=== PATIENT | male | born 1965 | race Native Hawaiian/Other Pacific Islander ===

== ENCOUNTER 2017-11-04 09:56 | Outpatient (CLI) | payer BC ==
[~2017-11-04 09:56] MED LIST: BENICAR20 MG PO; CARV6.25 PO; FURO40TA93 PO; GLIM2TAB PO; KLOR-CON M2020 MEQ PO; SPIRONOLACT25 MG PO; WARF10TA5 PO; WARF5TAB6 PO
== END 2017-11-04 19:47 | disposition home or self-care (01) ==
LOC: RAD 09:56
DX: M54.17 Radiculopathy, lumbosacral region (principal)

== ENCOUNTER → 2017-11-25 08:40 | Outpatient (CLI) | payer BC | END | disposition home or self-care (01) | LOC: AMB 08:40 | DX: R51 Headache (principal) ==

== ENCOUNTER 2018-03-17 12:35 | Outpatient (CLI) | payer BC | END 2018-03-17 23:15 | disposition home or self-care (01) | LOC: NM 12:35 | DX: R10.11 Right upper quadrant pain (principal) | CPT/HCPCS: A9537 ==

== ENCOUNTER 2019-03-16 04:43 | Outpatient (CLI) | payer BC | END 2019-03-16 04:55 | disposition short-term general hospital (02) | LOC: AMB 04:43 | DX: R06.02 Shortness of breath (principal) | CPT/HCPCS: A0425; A0427 ==

== ENCOUNTER 2019-03-16 05:00 | Emergency (ER) | payer BC ==
[~2019-03-16] VITALS: Ht 177.8 cm; Wt 83.9 kg
[2019-03-16 05:00] VITALS: TEMP 97.2
[2019-03-16 05:28] LABS: PLATELET COUNT 280 K/uL (142-355)
[2019-03-16 05:39] LABS: POTASSIUM 4.3 mmol/L (3.6-5.2); SODIUM 137 mmol/L (136-145)
[2019-03-16 07:18] VITALS: BP 99/65
== END 2019-03-16 07:18 | disposition home or self-care (01) ==
LOC: ED 05:00
PROVIDERS: Internal Medicine
DX: I50.9 Heart failure, unspecified (principal); R06.02 Shortness of breath
CPT/HCPCS: 80053; 82550; 83880; 84484; 85027; 85379; 93005; 94664; 96374; 99284; J1940

== ENCOUNTER 2019-06-11 11:16 | Emergency (ER) | payer BC ==
[~2019-06-11] VITALS: Ht 177.8 cm; Wt 83.9 kg
[2019-06-11] MEDS ORDERED: FORTAMET1000 MG PO (11:36)
[2019-06-11] MEDS ORDERED: LIPITOR40 MG PO (11:37)
[2019-06-11] MEDS ORDERED: CLOP75TA2 PO (11:37)
[2019-06-11] MEDS ORDERED: GLIM4TAB PO (11:37)
[2019-06-11] MEDS ORDERED: BUMETANIDE1 MG PO (11:37)
[2019-06-11] MEDS ORDERED: CARV3.12 PO (11:38)
[2019-06-11] MEDS ORDERED: PANTPAK PO (11:38)
[2019-06-11] MEDS ORDERED: CORLANOR5 MG PO (11:39)
[2019-06-11] MEDS ORDERED: BREO ELLIPTA 201 INH INH (11:39)
[2019-06-11 12:17] LABS: PLATELET COUNT 284 K/uL (142-355)
[2019-06-11 12:22] LABS: POTASSIUM 3.3 mmol/L (3.6-5.2); SODIUM 138 mmol/L (136-145)
[2019-06-11 12:29] LABS: PARTIAL THROMBOPLASTIN TIME 38.6 SECONDS (24.5-33.6)
[2019-06-11 14:30] VITALS: TEMP 98.3
[2019-06-11 15:30] VITALS: BP 111/75
== END 2019-06-11 15:30 | disposition short-term general hospital (02) ==
LOC: ED 11:16
PROVIDERS: Family Medicine
DX: R07.89 Other chest pain (principal); R42 Dizziness and giddiness; R55 Syncope and collapse
CPT/HCPCS: 36415; 80053; 81000; 82550; 83880; 84484; 85027; 85610; 85730; 93005; 99284

== ENCOUNTER 2020-06-01 10:20 | Emergency (ER) | payer BC ==
[~2020-06-01 10:20] MED LIST changes: +BREO ELLIPTA 201 INH INH; +BUMETANIDE1 MG PO; +CARV3.12 PO; +CLOP75TA2 PO; +CORLANOR5 MG PO; +FORTAMET1000 MG PO; +GLIM4TAB PO; +LIPITOR40 MG PO; +PANTPAK PO
[2020-06-01 19:27] LABS: POTASSIUM 3.5 mmol/L (3.6-5.2); SODIUM 134 mmol/L (136-145)
== END 2020-06-01 12:20 | disposition home or self-care (01) ==
LOC: ED 10:20
PROVIDERS: Hospitalist
DX: R07.89 Other chest pain (principal)
CPT/HCPCS: 80053; 82550; 84484; 93005; 99284

== ENCOUNTER 2022-04-03 12:22 | Emergency (ER) | payer BC ==
[~2022-04-03] VITALS: Ht 177.8 cm; Wt 83.9 kg
[2022-04-03 12:50] LABS: PLATELET COUNT 295 K/uL (142-355)
[2022-04-03 12:59] LABS: POTASSIUM 3.9 mmol/L (3.6-5.2)
[2022-04-03 14:10] VITALS: BP 138/75; TEMP 98
== END 2022-04-03 14:10 | disposition home or self-care (01) ==
LOC: ED 12:22
PROVIDERS: Emergency Medicine Emergency Medical Services
DX: R42 Dizziness and giddiness (principal); R20.2 Paresthesia of skin; Z95.0 Presence of cardiac pacemaker
CPT/HCPCS: 36415; 80053; 83735; 83880; 84484; 85027; 85610; 93005; 99283

== ENCOUNTER 2022-08-03 13:37 | Emergency (ER) | payer BC ==
[~2022-08-03] VITALS: Ht 177.8 cm; Wt 72.6 kg
[2022-08-03 13:37] VITALS: TEMP 98.5
[2022-08-03 14:48] LABS: PLATELET COUNT 300 K/uL (142-355)
[2022-08-03 14:53] LABS: POTASSIUM 3.8 mmol/L (3.6-5.2)
[2022-08-03] MEDS ORDERED: XARELTO20 MG PO (14:54)
[2022-08-03] MEDS ORDERED: ASPIRIN CHLD81 MG PO (14:55)
[2022-08-03] MEDS ORDERED: CLOPIDOGREL75 MG PO (14:55)
[2022-08-03] MEDS ORDERED: DICYCLOMINE HYD20 MG PO (14:56)
[2022-08-03 14:57] LABS: PARTIAL THROMBOPLASTIN TIME 32.9 SECONDS (24.5-33.6)
[2022-08-03] MEDS ORDERED: METFORMIN HYD1000 MG PO (14:57)
[2022-08-03] MEDS ORDERED: ROPINIROLE4 MG PO (14:58)
[2022-08-03] MEDS ORDERED: CARV6.25 PO (14:58)
[2022-08-03] MEDS ORDERED: ROPINIROLE0.5 MG PO (14:59)
[2022-08-03] MEDS ORDERED: SPIRONOLACT25 MG PO (15:02)
[2022-08-03] MEDS ORDERED: CORLANOR5 MG PO (15:03)
[2022-08-03 16:45] VITALS: BP 123/70
== END 2022-08-03 16:46 | disposition home or self-care (01) ==
LOC: ED 13:37
PROVIDERS: Family Medicine
DX: R10.84 Generalized abdominal pain (principal); M54.89 Other dorsalgia; M79.18 Myalgia, other site
CPT/HCPCS: 36415; 80053; 81002; 82150; 82550; 83690; 83880; 84484; 85027; 85610; 85730; 93005; 96374; 96375; 99284; J1885; J2405